=== PATIENT | female | born 1960 | race Caucasian/White ===

== ENCOUNTER 2025-02-21 14:13 | Outpatient (CLI) | payer MEDICARE ==
--- NOTE | 2025-02-23 09:43 | RADIOLOGY REPORT ---
CLINICAL INDICATION: SPRAIN OF ANTERIOR CRUCIATE LIGAMENT OF RIGHT KNEE, INIT TECHNIQUE: Multiplanar, multisequence MRI of the right knee was performed without contrast. Contrast: None. COMPARISON: None FINDINGS: Bones/articular cartilage /Joint space: Susceptibility artifact is present in the distal femur related to indwelling hardware. There is a transversely oriented fracture plane through the medial femoral condyle and the medial tibial plateau associated with bone marrow edema. There is moderate to severe medial compartment joint space narrowing with osteophytes along both sides of the medial joint space. Ossified loose body measuring 2 cm noted in the posterior joint recess. Complete articular cartilage loss is noted in the medial femoral condyle and the medial tibial plateau with exposed bone. There is no full- thickness articular cartilage loss in the lateral compartment although there is diffuse chondral thinning in the inner aspect on both sides of the joint with subchondral cysts. Patellofemoral joint space is maintained. Menisci: Complex macerated tear involving the majority of the medial meniscus with a small remnant of the posterior horn remaining which is significantly degenerated. Intrasubstance degeneration noted in the lateral meniscus with a radial tear of the posterior horn. Tendons and ligaments: The tendons in the posterior knee are intact. The extensor mechanism is intact. The anterior cruciate ligament is torn. The posterior cruciate ligament is intact. The medial collateral ligament and the lateral collateral ligament stabilizing complex are intact. Muscles: Mild soft tissue edema in the medial gastrocnemius and lateral gastrocnemius. There is prepatellar subcutaneous edema. Other: None. IMPRESSION: 1. Transversely oriented fractures in the medial femoral condyle and the medial tibial plateau. These may represent subchondral insufficiency fractures. 2. Severe medial compartment osteoarthritis. 3. Macerated medial meniscus tear. 4. Radial tear of the posterior horn of the lateral meniscus. 5. Full-thickness ACL tear. 6. Regional soft tissue swelling.
== END 2025-02-21 23:59 | disposition home or self-care (01) ==
LOC: MRI02 14:13
DX: S83.511A Sprain of anterior cruciate ligament of right knee, initial encounter (principal); S83.241A Other tear of medial meniscus, current injury, right knee, initial encounter; M79.89 Other specified soft tissue disorders; S83.281A Other tear of lateral meniscus, current injury, right knee, initial encounter; M17.11 Unilateral primary osteoarthritis, right knee; X58.XXXA Exposure to other specified factors, initial encounter; Y93.89 Activity, other specified; Y92.89 Other specified places as the place of occurrence of the external cause; Y99.8 Other external cause status
CPT/HCPCS: 73721